=== PATIENT | female | born 1990 | race Caucasian/White ===

== ENCOUNTER 2017-06-25 03:55 | Emergency (ER) | payer OTHER ==
[2017-06-25 04:03] VITALS: BP 128/86; PULSE 100; O2SAT 100
--- NOTE | 2017-06-25 04:11 | ERPHSYRPT ---
- History of Present Illness Time Seen by Provider: 06/25/17 04:00 Source: patient Exam Limitations: intoxication Patient Subjective Stated Complaint: brought in by [employer]. medical clearance. Triage Nursing Assessment: pt vital signs within normal limits. Physician History: 27 y/o female brought in by police for alcohol intoxication after being pulled over. Pt admits to drinking 3 beers and 2 alcoholic beverages. Pt denies using any drug use. No suicide or homicidal ideation. Pt is able to walk and talk with no difficulty. No loss of balance or fall. Timing/Duration: today Allergies/Adverse Reactions: NKA Allergy (Verified 06/25/17 04:04) Hx Tetanus, Diphtheria Vaccination/Date Given: Yes Hx Influenza Vaccination/Date Given: No Hx Pneumococcal Vaccination/Date Given: No Immunizations Up to Date: Yes - Review of Systems Constitutional: No Fever, No Chills Eyes: No Symptoms Ears, Nose, & Throat: No Symptoms Respiratory: No Cough, No Dyspnea Cardiac: No Chest Pain, No Edema, No Syncope Abdominal/Gastrointestinal: No Abdominal Pain, No Nausea, No Vomiting, No Diarrhea Genitourinary Symptoms: No Dysuria Musculoskeletal: No Back Pain, No Neck Pain Skin: No Rash Neurological: No Dizziness, No Focal Weakness, No Sensory Changes Psychological: Alcohol Abuse Endocrine: No Symptoms All Other Systems: Reviewed and Negative - Past Medical History Pertinent Past Medical History: No - Past Surgical History Past Surgical History: No - Social History Smoking Status: Never smoker Exposure to second hand smoke: No Drug Use: none - Female History Hx Now: No - Nursing Vital Signs Nursing Vital Signs: Initial Vital Signs Temperature 97.6 F 06/25/17 03:55 Pulse Rate 100 H 06/25/17 03:55 Respiratory Rate 18 06/25/17 03:55 Blood Pressure 128/86 06/25/17 03:55 O2 Sat by Pulse Oximetry 100 06/25/17 03:55 - Physical Exam General Appearance: no apparent distress, alert Eye Exam: PERRL/EOMI, eyes nml inspection Ears, Nose, Throat Exam: normal ENT inspection, TMs normal, pharynx normal, moist mucous membranes Neck Exam: normal inspection, non-tender, supple, full range of motion Respiratory Exam: normal breath sounds, lungs clear, No respiratory distress Cardiovascular Exam: regular rate/rhythm, normal heart sounds, normal peripheral pulses Gastrointestinal/Abdomen Exam: soft, normal bowel sounds, No tenderness, No mass Back Exam: normal inspection, normal range of motion, No CVA tenderness, No vertebral tenderness Extremity Exam: normal inspection, normal range of motion, pelvis stable Neurologic Exam: alert, oriented x 3, cooperative, normal mood/affect, nml cerebellar function, nml station & gait, sensation nml, No motor deficits Skin Exam: normal color, warm, dry, No rash Lymphatic Exam: No adenopathy SpO2: 100 Oxygen Delivery: Room Air - Course Nursing assessment & vital signs reviewed: Yes - Progress Progress: unchanged Progress Note: 06/25/17 04:09 Pt has been medically cleared for usp. Pt is alert and oriented X 3 and has no problems with balance. - Departure Time of Disposition: 04:10 Departure Disposition: Half-Way/[facility] Clinical Impression: Alcohol intoxication Qualifiers: Complication of substance-induced condition: with unspecified complication Qualified Code(s): F10.929 - Alcohol use, unspecified with intoxication, unspecified Condition: Stable Critical Care Time: No Referrals: SUBHA NARANJO NP [Primary Care Provider] - Instructions: Alcohol Abuse and Alcoholism (DC) Additional Instructions: Patient has been medically cleared for usp.
== END 2017-06-25 04:37 | disposition home or self-care (01) ==
LOC: LAB 03:55 → ED 03:55 → LAB 04:37 → EDSTATUS 08:22
DX: F10.929 Alcohol use, unspecified with intoxication, unspecified (principal)
CPT/HCPCS: 36415; 80302; 99281; 99283; G0480